=== PATIENT | male | born 1990 | race Caucasian/White ===

== ENCOUNTER 2018-04-27 15:55 | Emergency (ER) | payer OTHER, MEDICAID, SELFPAY ==
[2018-04-27 15:59] VITALS: BP 136/74; PULSE 89; RESP 20; TEMP 36.3; O2SAT 98; BMI 24.3
[2018-04-27 16:04] VITALS: PULSE 84; RESP 20; O2SAT 99
[2018-04-27] MEDS: ALBUTEROL 2.5 MG/3 ML NEB (ADULT) INH (16:04)
--- NOTE | 2018-04-27 17:06 | DI.RAD.S_ITS ---
PROCEDURE: XR CHEST 2V INDICATIONS: productive cough, sob TECHNIQUE: 2 views of the chest were acquired. COMPARISON: None. FINDINGS: Surgical changes and devices: None. Lungs and pleura: No pleural effusions or pneumothorax. Lungs are clear. Mediastinum: Mediastinal contours are normal. Heart size is normal. Bones and chest wall: No suspicious bony abnormalities. Soft tissues appear unremarkable. IMPRESSION: Normal for age. Source of current symptoms is not seen. Dictated by: Damon Busby M.D. on 04/27/2018 at 17:57 Approved by: Damon Busby M.D. on 04/27/2018 at 17:58
[2018-04-27] MEDS: predniSONE 20 MG TABLET 40 MG PO (17:25)
--- NOTE | 2018-04-27 17:32 | ED_ITS ---
HPI - SOB/Dyspnea <GOVIND Carreon - Last Filed: 04/27/18 19:53> General Chief Complaint: Shortness of Breath/Dyspnea Stated Complaint: DIFFICULTY BREATHING Time Seen by Provider: 04/27/18 16:59 Source: patient Mode of arrival: ambulatory Limitations: no limitations History of Present Illness Patient presents with chief complaint of shortness of breath and wheezing. States his been going on for 2 days. He thinks it is related to his allergies. He does have a history of asthma but states he has been taking medications for a long time. He endorses shortness of breath, wheezing and a productive cough. Denies any sore throat, denies ear pain, denies chest pain denies abdominal pain denies nausea vomiting or diarrhea. Related Data Previous Rx's Medication Instructions Recorded albuterol sulfate 2 puff INHALATION Q4-6H PRN #18 04/27/18 gram prednisone 40 mg PO DAILY #8 tab 04/27/18 Allergies Allergy/AdvReac Type Severity Reaction Status Date / Time amoxicillin Allergy Verified 04/27/18 15:59 Review of Systems <GOVIND Carreon - Last Filed: 04/27/18 19:53> Review of Systems GENERAL: Denies chills, fatigue, malaise, fever, sweats. HEENT: Denies sinus pain, ear pain, sore throat, difficulty swallowing, dizziness. RESPIRATORY: See HPI CARDIOVASCULAR: Denies chest pain, palpitations, orthopnea, edema, GASTROINTESTINAL: Denies nausea, vomiting, abdominal pain, diarrhea, constipation, melena. : Denies dysuria, frequency, incontinence, hematuria, urinary retention. MUSCULOSKELETAL: denies weakness, joint pain, or bony pain SKIN: Denies rash, skin lesions, or other NEUROLOGIC: Denies weakness, headache, numbness, change in speech, confusion, seizures, incoordination. PSYCHIATRIC: No concerning psychosocial issues. 12 point review of systems is negative except for those stated above Exam <GOVIND Carreon - Last Filed: 04/27/18 19:53> Narrative Exam Narrative: GENERAL: This is a well-nourished, well-developed patient, in no acute distress during on stretcher HEAD: Atraumatic. Normocephalic. No temporal or scalp tenderness. EYES: Pupils equal round and reactive. Extraocular motions intact. No scleral icterus. No injection or drainage. ENT: Nose without bleeding, purulent drainage or septal hematoma. Throat without erythema, tonsillar hypertrophy or exudate. Uvula midline. Airway patent. NECK: Trachea midline. No JVD or lymphadenopathy. Supple, nontender, no meningeal signs. CARDIOVASCULAR: Regular rate and rhythm without murmurs, gallops, or rubs. RESPIRATORY: Diffuse expiratory wheezes all mishra bilaterally. Breath sounds equal bilaterally. No rales or rhonchi. Wet sounding cough on exam. GASTROINTESTINAL: Abdomen soft, non-tender, nondistended. No hepato-splenomegaly , or palpable masses. No guarding. EXTREMITIES: No clubbing, cyanosis, or edema. No joint tenderness, effusion, or edema noted. BACK: Nontender without deformity or crepitance. No flank tenderness. NEURO: AOx3. SKIN: No rash or erythema. Initial Vital Signs Initial Vital Signs: Vital Signs Temperature 97.4 F L 04/27/18 15:59 Pulse Rate 89 04/27/18 15:59 Respiratory Rate 20 04/27/18 15:59 Blood Pressure 136/74 04/27/18 15:59 Pulse Oximetry 98 04/27/18 15:59 <Tony Grissom DO - Last Filed: 04/27/18 21:31> Initial Vital Signs Initial Vital Signs: Vital Signs Temperature 97.4 F L 04/27/18 15:59 Pulse Rate 89 04/27/18 15:59 Respiratory Rate 20 04/27/18 15:59 Blood Pressure 136/74 04/27/18 15:59 Pulse Oximetry 98 04/27/18 15:59 Course <EARLENE Carreon - Last Filed: 04/27/18 19:53> Course Narrative: I checked on the patient several times throughout his stay. Orders Ordered: ED Orders 04/27/18 17:06 XR chest 2V Stat 04/27/18 17:52 RT Consult Eval and Treat Now Discontinued Medications Albuterol (Ventolin) 2.5 mg INH NOW ONE Stop: 04/27/18 16:03 Last Admin: 04/27/18 16:04 Dose: 2.5 mg Albuterol/Ipratropium (Duoneb) 3 ml INH NOW ONE Stop: 04/27/18 18:04 Prednisone (Deltasone) 40 mg PO NOW ONE Stop: 04/27/18 17:07 Last Admin: 04/27/18 17:25 Dose: 40 mg Vital Signs - 8 hr 04/27/18 15:59 04/27/18 16:04 04/27/18 18:03 Temperature 97.4 F L Pulse Rate 89 84 86 Respiratory Rate 20 20 16 Blood Pressure 136/74 Pulse Oximetry 98 99 97 04/27/18 18:32 Temperature Pulse Rate 88 Respiratory Rate 20 Blood Pressure 114/66 Pulse Oximetry 98 <Tony Grissom DO - Last Filed: 04/27/18 21:31> Orders Ordered: ED Orders 04/27/18 17:06 XR chest 2V Stat 04/27/18 17:52 RT Consult Eval and Treat Now Discontinued Medications Albuterol (Ventolin) 2.5 mg INH NOW ONE Stop: 04/27/18 16:03 Last Admin: 04/27/18 16:04 Dose: 2.5 mg Albuterol/Ipratropium (Duoneb) 3 ml INH NOW ONE Stop: 04/27/18 18:04 Prednisone (Deltasone) 40 mg PO NOW ONE Stop: 04/27/18 17:07 Last Admin: 04/27/18 17:25 Dose: 40 mg Vital Signs - 8 hr 04/27/18 15:59 04/27/18 16:04 04/27/18 18:03 Temperature 97.4 F L Pulse Rate 89 84 86 Respiratory Rate 20 20 16 Blood Pressure 136/74 Pulse Oximetry 98 99 97 04/27/18 18:32 Temperature Pulse Rate 88 Respiratory Rate 20 Blood Pressure 114/66 Pulse Oximetry 98 MDM - SOB/Dyspnea <EARLENE Carreon - Last Filed: 04/27/18 19:53> Imaging Data Chest x-ray: Radiologist's impression: [address] [address] XRay Report Signed Patient: Clemente Quach EMR#: [id number] : 1990Acct:[id number] Age/Sex: 27 / MDate of Service: 04/27/18 Loc: ED Accession Number: [id number] Procedure: XR chest 2V Ordering Provider: Cindy Bhatia PROCEDURE: XR CHEST 2V INDICATIONS: productive cough, sob TECHNIQUE: 2 views of the chest were acquired. COMPARISON: None. FINDINGS: Surgical changes and devices: None. Lungs and pleura: No pleural effusions or pneumothorax. Lungs are clear. Mediastinum: Mediastinal contours are normal. Heart size is normal. Bones and chest wall: No suspicious bony abnormalities. Soft tissues appear unremarkable. IMPRESSION: Normal for age. Source of current symptoms is not seen. Dictated by: Damon Busby M.D. on 04/27/2018 at 17:57 Approved by: Damon Busby M.D. on 04/27/2018 at 17:58 [facility] Narrative Medical decision making narrative: Patient presents with chief complaint of wheezing. He was given a nebulizer treatment in triage. Given his productive cough, I elected to obtain a chest x-ray to evaluate for pneumonia which came back within normal limits. I passed a respiratory therapist to re-evaluate him for his wheezing after his x-ray and a dose of steroids. He was given a DuoNeb prior to discharge. Of note he does have a history of asthma, but states that he believes he ?grew out of it?. He responded well in the emergency department to be rule given. I elected to give him a inhaler upon discharge as well as a steroid burst given the level of his wheezing. I encouraged him to follow up with primary care provider come back to the emergency department for any acute needs or shortness of breath. He has no questions or concerns upon discharge. Discharge Plan Departure Patient Disposition: Home Clinical Impression: Bilateral wheezing Discharge Date/Time: 04/27/18 18:33 Interventions: ED Discharge Assessment Last Done: 04/27/18 18:32 Instructions: DI for Asthma -- Adult Activity Restrictions/Additional Instructions: Your x-ray came back okay today. I am giving you a prescription for steroids to take for the next 4 days. Please take 2 tablets tomorrow. I am also giving a prescription for albuterol inhaler to use every 4-6 hours as needed for wheezing. Please follow-up with primary care provider. Please come back to the emergency department for emergent needs or if you have any acute shortness of breath. Prescriptions: New prednisone 20 mg tablet 40 mg PO DAILY Qty: 8 RF: 0 albuterol sulfate 90 mcg/actuation HFA aerosol inhaler 2 puff INHALATION Q4-6H PRN (Reason: wheezing) Qty: 18 RF: 0 <Tony Grissom, DO - Last Filed: 04/27/18 21:31> Cosign ED Attending Cosignature Attestation: I was immediately available in the department for consultation. Documentation has been reviewed. I agree with assessment and plan. Sign Out Provider Sign Out Attestation: I was immediately available in the department for consultation. Documentation has been reviewed. I agree with assessment and plan.
[2018-04-27 18:03] VITALS: PULSE 86; RESP 16; O2SAT 97
[2018-04-27 18:32] VITALS: BP 114/66; PULSE 88; RESP 20; O2SAT 98
== END 2018-04-27 18:33 | disposition home or self-care (01) ==
PROVIDERS: Emergency Provider Nurse Practitioner Family
DX: R06.2 Wheezing (principal)
CPT/HCPCS: 71046; 94640; 99282; 99283; J7613

== ENCOUNTER 2018-12-04 19:07 | Emergency (ER) | payer OTHER, MEDICAID, SELFPAY ==
[2018-12-04 19:11] VITALS: BP 122/72; PULSE 68; RESP 14; TEMP 36.7; O2SAT 100
--- NOTE | 2018-12-04 19:16 | DI.RAD.S_ITS ---
PROCEDURE: XR WRIST RT MIN 3V INDICATIONS: fell on tuesday, skateboard injury TECHNIQUE: 4 views of the wrist were acquired. COMPARISON: None. FINDINGS: Bones: No fractures or dislocations. No suspicious bony lesions. Scaphoid view: No fracture. Soft tissues: No suspicious soft tissue calcifications. IMPRESSION: No visualized acute fracture or dislocation. However, if clinical concern and/or pain persist, short interval imaging followup in 7-10 days is recommended, as occult injury cannot be definitively excluded. Dictated by: Sultana Castro M.D. on 12/04/2018 at 19:46 Approved by: Sultana Castro M.D. on 12/04/2018 at 19:46
--- NOTE | 2018-12-04 19:59 | ED_ITS ---
HPI - Extremity Injury (Upper) <Regina Garcia PA-C - Last Filed: 12/04/18 21:41> General Chief Complaint: Extremity Injury, Upper Stated Complaint: RIGHT WRIST INJURY HARD TIME BREATHING Time Seen by Provider: 12/04/18 19:29 Source: patient Mode of arrival: ambulatory Limitations: no limitations History of Present Illness HPI narrative: This 28-year-old male comes to ED secondary to 1. Right wrist pain after fall off of his skateboard to extended wrist. He states that he has fallen on this wrist and hand in the past. He did this on Tuesday, but it is still painful. He feels like he can use his fingers and does not have pain in the hand, but it is painful to use the wrist. He denies any other acute injuries. 2. He has a history of springtime asthma and allergies. He started Abbie, but feels like he needs a refill on his inhaler as he can get tight chest and wheeze along with his other allergy symptoms when he is outdoors and exposed to pollen or animals. He is feeling fine now currently indoors, no recent illness or fever. He does not know the date of his last tetanus vaccine. He states he does have some chronic pain especially in both wrists and ankles but has not seen his PCP for this Related Data Previous Rx's Medication Instructions Recorded albuterol sulfate 2 puff INHALATION Q4-6H PRN #18 04/27/18 gram prednisone 40 mg PO DAILY #8 tab 04/27/18 albuterol sulfate 2 puff INHALATION Q4-6H PRN #8.5 12/04/18 gram Allergies Allergy/AdvReac Type Severity Reaction Status Date / Time amoxicillin Allergy Verified 12/04/18 19:16 Review of Systems <Regina Garcia PA-C - Last Filed: 12/04/18 21:41> Review of Systems ROS Unobtainable: All systems reviewed & are unremarkable except as noted in HPI and below PFSH <Regina Garcia PA-C - Last Filed: 12/04/18 21:41> Medical History (Updated 12/04/18 @ 20:28 by Regina Garcia PA-C) Asthma (Acute) Seasonal allergies (Acute) Social History Smoking Status: Current every day smoker Social History Smoking Status: Current every day smoker Exam <Regina Garcia PA-C - Last Filed: 12/04/18 21:41> Narrative Exam Narrative: GENERAL APPEARANCE: Patient sitting comfortably, in no distress. EYES: PERRL, EOMI. EARS: Normal auditory canals, TMS intact with normal light reflexes. ORAL CAVITY: Normal oropharynx. THROAT: PND noted, of gastelum no NECK/THYROID: Neck supple, full range of motion, no cervical lymphadenopathy. LUNGS: Clear to auscultation bilaterally, no cough on exam. HEART: RRR without murmur, nl S1, S2, no S3 or S4. MUSCULOSKELETAL: Right wrist there is no effusion. Tender across the posterior wrist and more on the lateral than medial side. Limited range of motion secondary to tenderness. No tenderness in the forearm, right hand or fingers. Full range of motion in the fingers, basketball referee strength 5/5 NEUROVASCULAR: Right hand fingers are warm and pink with brisk cap refill, sensation grossly intact DERMATOLOGIC: Scattered scabs and abrasions noted on the upper extremities, all dry, no erythema or drainage Initial Vital Signs Initial Vital Signs: Vital Signs Temperature 98.1 F 12/04/18 19:11 Pulse Rate 68 12/04/18 19:11 Respiratory Rate 14 12/04/18 19:11 Blood Pressure 122/72 12/04/18 19:11 Pulse Oximetry 100 12/04/18 19:11 <Gallo Cardoso MD - Last Filed: 12/05/18 05:04> Initial Vital Signs Initial Vital Signs: Vital Signs Temperature 98.1 F 12/04/18 19:11 Pulse Rate 68 12/04/18 19:11 Respiratory Rate 14 12/04/18 19:11 Blood Pressure 122/72 12/04/18 19:11 Pulse Oximetry 100 12/04/18 19:11 Course <Regina Garcia PA-C - Last Filed: 12/04/18 21:41> Orders Ordered: Discontinued Medications Tetanus/Diphtheria Toxoids (Td) 0.5 ml IM .ONCE ONE Stop: 12/04/18 19:55 Last Admin: 12/04/18 20:19 Dose: 0.5 ml Vital Signs - 8 hr 12/04/18 19:11 12/04/18 20:26 Temperature 98.1 F Pulse Rate 68 58 L Respiratory Rate 14 17 Blood Pressure 122/72 Blood Pressure [Right Arm] 118/65 Pulse Oximetry 100 100 <Gallo Cardoso MD - Last Filed: 12/05/18 05:04> Orders Ordered: Discontinued Medications Tetanus/Diphtheria Toxoids (Td) 0.5 ml IM .ONCE ONE Stop: 12/04/18 19:55 Last Admin: 12/04/18 20:19 Dose: 0.5 ml Vital Signs - 8 hr 12/04/18 19:11 12/04/18 20:26 Temperature 98.1 F Pulse Rate 68 58 L Respiratory Rate 14 17 Blood Pressure 122/72 Blood Pressure [Right Arm] 118/65 Pulse Oximetry 100 100 Discharge Plan Departure Patient Disposition: Home Clinical Impression: Sprain and strain of wrist Asthma Qualifiers: Asthma severity: mild Asthma persistence: intermittent Asthma complication type: with acute exacerbation Qualified Code(s): J45.21 - Mild intermittent asthma with (acute) exacerbation Discharge Date/Time: 12/04/18 20:33 Interventions: ED Discharge Assessment Last Done: 12/04/18 20:33 Instructions: DI for Wrist Sprain Activity Restrictions/Additional Instructions: Please return if you have any acutely worsening symptoms. Please wear your wrist immobilizer splint to help protect your wrist. Continue your [id number] Aleve, 2 tablets every 12 hours, which is the equivalent of a prescription dose. Please continue your antihistamine that you have been taking and fill the prescription for albuterol on your way home. Use it as needed with your spacer. Please call the insurance Resource line here at [facility], tomorrow to get help with a referral to a local primary care provider, and see the PCP you have now in the next week if you are not able to see someone locally. You may need repeat x-rays as we talked about if you are not doing better, and you should also discuss your chronic joint pains. Prescriptions: New albuterol sulfate 90 mcg/actuation HFA aerosol inhaler 2 puff INHALATION Q4-6H PRN (Reason: shortness of breath or wheezing) Qty: 8.5 RF: 0 No Action prednisone 20 mg tablet 40 mg PO DAILY Qty: 8 RF: 0 albuterol sulfate 90 mcg/actuation HFA aerosol inhaler 2 puff INHALATION Q4-6H PRN (Reason: wheezing) Qty: 18 RF: 0 Referrals: Nba Matos [Other] <Gallo Cardoso MD - Last Filed: 12/05/18 05:04> Cosign ED Attending Cosignature Attestation: I was present in the ER at the time this patient's care. I was available for consultation or to see the patient directly if requested. I agree with the patient's evaluation, assessment and treatment plan.
[2018-12-04] MEDS: TETANUS DIPHTHERIA TOXOIDS 0.5 ML VIAL IM (20:19)
[2018-12-04 20:26] VITALS: BP 118/65; PULSE 58; RESP 17; O2SAT 100
== END 2018-12-04 20:33 | disposition home or self-care (01) ==
PROVIDERS: Emergency Provider Internal Medicine
DX: S63.501A Unspecified sprain of right wrist, initial encounter (principal); J45.21 Mild intermittent asthma with (acute) exacerbation; V00.131A Fall from skateboard, initial encounter; Z23 Encounter for immunization
CPT/HCPCS: 73110; 90471; 90714; 99282; 99283

== ENCOUNTER 2019-10-13 20:19 | Emergency (ER) | payer OTHER, MEDICAID, SELFPAY ==
[2019-10-13 20:30] VITALS: BP 126/65; PULSE 71; RESP 15; TEMP 36.4; O2SAT 99; BMI 24.5
[2019-10-13 20:35] VITALS: PULSE 66; RESP 16; O2SAT 100
--- NOTE | 2019-10-13 20:54 | ED_ITS ---
HPI - SOB/Dyspnea <CHAYO Pearce - Last Filed: 10/13/19 21:02> General Chief Complaint: Shortness of Breath/Dyspnea Stated Complaint: trouble breathing Time Seen by Provider: 10/13/19 20:39 Source: patient Mode of arrival: Family Vehicle Limitations: no limitations History of Present Illness HPI Narrative: This is a 29 year male, smoker, who presents to ED with asthma exacerbation around same time of the year. Patient states he has allergies to pollen, grass, dust and he tends to have asthma exacerbation from these. Patient reports he ran out of albuterol inhaler and his in process of setting up a PCP. Patient reports mild short of breath, mild cough, congestion, and mild chest tightness. Patient denies fever, recent foreign travel, ill contact. Patient reports no other chronic medical problems besides asthma. Related Data Previous Rx's Medication Instructions Recorded albuterol sulfate 2 puff INHALATION Q4-6H PRN #18 04/27/18 gram prednisone 40 mg PO DAILY #8 tab 04/27/18 albuterol sulfate 2 puff INHALATION Q4-6H PRN #8.5 12/04/18 gram Allergies Allergy/AdvReac Type Severity Reaction Status Date / Time amoxicillin Allergy Verified 12/04/18 19:16 Review of Systems <CHAYO Pearce - Last Filed: 10/13/19 21:02> Review of Systems Narrative: General: Denies fever, chills, fatigue, malaise, sweats. HEENT: Denies sinus pain, ear pain, sore throat, difficulty swallowing, dizziness. Respiratory: See HPI Cardiovascular: Denies chest pain, palpitations, orthopnea, edema. Gastrointestinal: Denies nausea, vomiting, abdominal pain, diarrhea, constipation, melena. : Denies dysuria, frequency, incontinence, hematuria, urinary retention. Musculoskeletal: Denies weakness, joint pain or bony pain. Skin: Denies rash, skin lesions, or other. Neurologic: Denies weakness, headache, numbness, change in speech, confusion, seizures, incoordination. Psychiatric: No concerning psychosocial issues. 12-point review of systems is negative except for those stated above. Patient History <CHAYO Pearce - Last Filed: 10/13/19 21:02> Medical History Asthma (Acute) Seasonal allergies (Acute) Surgical History S/P tendon repair (Acute) Social History Smoking Status: Current every day smoker Smoking Status: Current every day smoker alcohol intake frequency: 0-2 drinks per day Substance Use Type: does not use Exam <CHAYO Pearce - Last Filed: 10/13/19 21:02> Narrative Exam Narrative: GEN: Alert, oriented x 3, well appearing and nourished, and in no acute distress. Head: Normal cephalic, atraumatic. No scalp or temporal tenderness, palpable mass or rash. EYES: Pupils are equal, round, and reactive to light and accommodation. Extraocular muscles are intact bilaterally. There is no subconjunctival hemorrhage, exudate and sclera non-icteric. ENT: Bilateral auditory canals and tympanic membranes clear. Hearing grossly intact. Nose without bleeding, purulent discharge or deviation. Facial sinuses nontender to palpate. Mucous membrane moist, no mucosal lesion. Throat without erythema, tonsillar hypertrophy or exudate. Uvula in midline, airway patent. Neck: Trachea in midline. No JVD, non-tender without lymphadenopathy. No masses or thyroid megaly. Supple, non-tender and no meningeal signs. CARDIAC: Normal regular rate and rhythm without murmurs, gallops, or rubs. No chest wall tenderness. No peripheral edema, cyanosis or pallor. Capillary refill is less than 2 seconds. RESPIRATORY: Lungs are clear to auscultate bilaterally. No cough, wheezes, rales, or rhonchi. No stridor, respiratory distress, increase work of breathing, or accessary muscle used. ABD: Abdomen soft, nontender and non-distended. No guarding or rebound tenderness to palpate. Bowel sounds are normal in all 4 quadrants. There is no palpable masses or organomegaly. EXT: Full painless ROM of all extremities with no loss of sensation, strength, effusion or edema. SKIN: Warm, dry, normal color for patient. No erythema, lesions or rash over visible areas. BACK: Nontender without deformity or crepitance. No flank tenderness. NEUROLOGICAL: Alert and oriented to place, time and person. Sensation and motor function intact bilaterally. No facial droops, dysphasia. PSYCHIATRIC: Good judgement and reason, without hallucinations, abnormal affect or abnormal behaviors during the examination. Initial Vital Signs Initial Vital Signs: Vital Signs Temperature 97.6 F 10/13/19 20:30 Pulse Rate 71 10/13/19 20:30 Respiratory Rate 15 10/13/19 20:30 Blood Pressure 126/65 10/13/19 20:30 Pulse Oximetry 99 10/13/19 20:30 <Robin Garvin MD - Last Filed: 10/14/19 04:05> Initial Vital Signs Initial Vital Signs: Vital Signs Temperature 97.6 F 10/13/19 20:30 Pulse Rate 71 10/13/19 20:30 Respiratory Rate 15 10/13/19 20:30 Blood Pressure 126/65 10/13/19 20:30 Pulse Oximetry 99 10/13/19 20:30 Scores <CHAYO Pearce - Last Filed: 10/13/19 21:02> GCS Fabián coma scale eye opening: Spontaneous Fabián coma scale verbal response: Orientated Fabián coma scale motor response: Obey commands Fabián coma scale total score: 15 Course <CHAYO Pearce - Last Filed: 10/13/19 21:02> Orders Ordered: Discontinued Medications Albuterol (Ventolin Hfa Prepack) 1 box MISC SEEINSTR ONE Stop: 10/13/19 20:52 Last Admin: 10/13/19 21:05 Dose: 1 box Documented by: HARRISON Vital Signs Vital signs: Vital Signs - 8 hr 10/13/19 20:30 10/13/19 20:35 10/13/19 21:09 Temperature 97.6 F Pulse Rate 71 66 Respiratory Rate 15 16 16 Blood Pressure 126/65 Pulse Oximetry 99 100 98 10/13/19 21:20 Temperature Pulse Rate 59 L Respiratory Rate 16 Blood Pressure 113/58 L Pulse Oximetry 100 <Robin Garvin MD - Last Filed: 10/14/19 04:05> Orders Ordered: Discontinued Medications Albuterol (Ventolin Hfa Prepack) 1 box MISC SEEINSTR ONE Stop: 10/13/19 20:52 Last Admin: 10/13/19 21:05 Dose: 1 box Documented by: HARRISON Vital Signs Vital signs: Vital Signs - 8 hr 10/13/19 20:30 10/13/19 20:35 10/13/19 21:09 Temperature 97.6 F Pulse Rate 71 66 Respiratory Rate 15 16 16 Blood Pressure 126/65 Pulse Oximetry 99 100 98 10/13/19 21:20 Temperature Pulse Rate 59 L Respiratory Rate 16 Blood Pressure 113/58 L Pulse Oximetry 100 MDM - SOB/Dyspnea <Aneudy RubalcavaJigarElioCHAYO - Last Filed: 10/13/19 21:02> Differential Diagnosis Differential diagnosis: Likely asthma with exacerbation and other (Seasonal allergies, pneumonia) Medical Records Attestation: I reviewed the patient's medical records. MDM Narrative Medical decision making narrative: This is a 29-year-old male who presents to ED with chief complain of asthma exacerbation likely from seasonal allergies around the same time of the year. Patient reports he is out of albuterol inhaler which he uses and in process of setting up a PCP but this is not going to be done till in the beginning of next month. Lung sounds are clear to auscultate in all lobes. There is no increased work of breathing. Patient does not have frequent coughing. Patient provided with albuterol MDI prepack and contact information for [facility] to set up a PCP. Return precautions were discussed with the patient and patient verbalized understanding and in agreement with the treatment plan. Discharge Plan Departure Patient Disposition: Home Clinical Impression: Asthma with exacerbation Qualifiers: Asthma severity: mild Asthma persistence: unspecified Qualified Code(s): J45.901 - Unspecified asthma with (acute) exacerbation Discharge Date/Time: 10/13/19 21:20 Instructions: DI for Asthma -- Adult Activity Restrictions/Additional Instructions: You have been diagnosed with [asthma exacerbation likely due to seasonal allergy.]. What to do: *Take your medications as directed. You have been provided with albuterol inhaler prepack in ED. you can use 2 puffs every 4-6 hours as needed for short of breath, cough, chest tightness. You can try [id number] allergy medication as well such as Zyrtec, Abbie, Claritin. *Follow up with your primary care provider in 2-3 days, call for an appointment. Let them know you were seen in the ED and that we asked you to be seen in follow up. Please contact [facility] phone number to set up a PCP. *Return to ED if you have any new, worsening, or concerning symptoms, such as [chest pain, breathing difficulty, fever, or any acute concerns]. Prescriptions: No Action prednisone 20 mg tablet 40 mg PO DAILY Qty: 8 RF: 0 albuterol sulfate 90 mcg/actuation HFA aerosol inhaler 2 puff INHALATION Q4-6H PRN (Reason: wheezing) Qty: 18 RF: 0 albuterol sulfate 90 mcg/actuation HFA aerosol inhaler 2 puff INHALATION Q4-6H PRN (Reason: shortness of breath or wheezing) Qty: 8.5 RF: [address]errals: [facility] [Outside] ED Sign-out <CHAYO Pearce - Last Filed: 10/13/19 21:02> Cosign ED Attending Endyature Attestation: I was immediately available in the department for consultation. This documentation has been reviewed and I agree with assessment and plan. Supervised by CHAYO Pearce
[2019-10-13] MEDS: ALBUTEROL HFA PREPACK 1 BOX MISC (21:05)
[2019-10-13 21:09] VITALS: RESP 16; O2SAT 98
[2019-10-13 21:20] VITALS: BP 113/58; PULSE 59; RESP 16; O2SAT 100; O2SAT 99
== END 2019-10-13 21:20 | disposition home or self-care (01) ==
PROVIDERS: Emergency Provider Nurse Practitioner Family
DX: J45.901 Unspecified asthma with (acute) exacerbation (principal); F17.200 Nicotine dependence, unspecified, uncomplicated
CPT/HCPCS: 94640; 99281; 99282

== ENCOUNTER 2019-11-28 12:07 | Emergency (ER) | payer OTHER, MEDICAID, SELFPAY ==
[2019-11-28 12:10] VITALS: BP 162/83; PULSE 100; RESP 14; TEMP 36.9; O2SAT 96; BMI 24.3
--- NOTE | 2019-11-28 12:23 | ED_ITS ---
HPI - Wound/Laceration <CHAYO Tompkins - Last Filed: 11/28/19 13:07> General Chief Complaint: Wound/Laceration Stated Complaint: LT PINKY SLICED Time Seen by Provider: 11/28/19 12:10 Source: patient Mode of arrival: Ambulatory Limitations: no limitations History of Present Illness HPI narrative: This is a 29 year male, smoker, who presents to ED with chief complain of laceration on his non dominant hand, left 5th finger from a garden shear 1 hour before coming into ED. patient reports his tetanus immunization is updated recently. Right dominant hand. Reports he had could direct pressure and immediately applied occlusive dressing prior coming into ED. Related Data Previous Rx's Medication Instructions Recorded albuterol sulfate 2 puff INHALATION Q4-6H PRN #18 04/27/18 gram prednisone 40 mg PO DAILY #8 tab 04/27/18 albuterol sulfate 2 puff INHALATION Q4-6H PRN #8.5 12/04/18 gram albuterol sulfate 2 inhalation INHALATION Q4-6H PRN 11/28/19 #1 each Allergies Allergy/AdvReac Type Severity Reaction Status Date / Time amoxicillin Allergy Verified 11/28/19 12:13 Review of Systems <CHAYO Tompkins - Last Filed: 11/28/19 13:07> Review of Systems Narrative: General: Denies fever, chills, fatigue, malaise, sweats. HEENT: Denies sinus pain, ear pain, sore throat, difficulty swallowing, dizziness. Respiratory: Denies dyspnea, cough, wheezing, hemoptysis, sputum. Cardiovascular: Denies chest pain, palpitations, orthopnea, edema. Gastrointestinal: Denies nausea, vomiting, abdominal pain, diarrhea, constipation, melena. : Denies dysuria, frequency, incontinence, hematuria, urinary retention. Musculoskeletal: Denies weakness, joint pain or bony pain. Skin: See HPI Patient History <CHAYO Tompkins - Last Filed: 11/28/19 13:07> Medical History Asthma (Acute) Seasonal allergies (Acute) Surgical History S/P tendon repair (Acute) Social History Smoking Status: Current every day smoker Smoking Status: Current every day smoker alcohol intake frequency: holidays/special occasions only Substance Use Type: does not use Exam <CHAYO Tompkins - Last Filed: 11/28/19 13:07> Narrative Exam Narrative: General appearance: well developed, well nourished, in no acute distress. Head: normocephalic, atraumatic, no scalp lesions, non-tender. ENT: Hearing grossly intact. Nose without bleeding, purulent discharge. Facial sinuses nontender to palpate. Mucous membrane moist, no mucosal lesion. Neck/Thyroid: neck supple, full range of motion, no visible masses or meningeal signs. No JVD, non-tender without lymphadenopathy. Skin: Flap shaped small laceration on the tip left 5th finger distal phalanx. no suspicious rashes, lesions over other visible areas. Warm and dry and appropriate color for ethnicity. Heart: no clubbing, no cyanosis, no edema. Lungs: Breathing even and unlabored. No stridor. No accessory muscles used. Able to speak in full sentences. Chest: normal shape and expansion. Abdomen: non-obese, non-distended. Neurologic: alert and oriented. 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 Psych: good eye contact, normal affect. Initial Vital Signs Initial Vital Signs: Vital Signs Temperature 98.4 F 11/28/19 12:10 Pulse Rate 100 H 11/28/19 12:10 Respiratory Rate 14 11/28/19 12:10 Blood Pressure 162/83 H 11/28/19 12:10 Pulse Oximetry 96 11/28/19 12:10 <Shell An MD - Last Filed: 11/28/19 18:36> Initial Vital Signs Initial Vital Signs: Vital Signs Temperature 98.4 F 11/28/19 12:10 Pulse Rate 100 H 11/28/19 12:10 Respiratory Rate 14 11/28/19 12:10 Blood Pressure 162/83 H 11/28/19 12:10 Pulse Oximetry 96 11/28/19 12:10 Procedures <CHAYO Tompkins - Last Filed: 11/28/19 13:07> Laceration Repair Laceration 1: Site: hand (5th finger tip) Side (If applicable): left Size (cm): 1 Description: flap Pre-repair: wound explored and irrigated extensively Skin layer closed with: steri-strips Scores <CHAYO Tompkins - Last Filed: 11/28/19 13:07> GCS [place] coma scale eye opening: Spontaneous Fabián coma scale verbal response: Orientated [place] coma scale motor response: Obey commands [place] coma scale total score: 15 Course <CHAYO Tompkins - Last Filed: 11/28/19 13:07> Vital Signs Vital signs: Vital Signs - 8 hr 11/28/19 12:10 Temperature 98.4 F Pulse Rate 100 H Respiratory Rate 14 Blood Pressure 162/83 H Pulse Oximetry 96 <Shell An MD - Last Filed: 11/28/19 18:36> Vital Signs Vital signs: Vital Signs - 8 hr 11/28/19 12:10 Temperature 98.4 F Pulse Rate 100 H Respiratory Rate 14 Blood Pressure 162/83 H Pulse Oximetry 96 MDM - Wound/Laceration <CHAYO Tompkins - Last Filed: 11/28/19 13:07> Differential Diagnosis Differential diagnosis: Likely laceration Medical Records Attestation: I reviewed the patient's medical records. [facility] Narrative Medical decision making narrative: This is a 29 year male who presents to ED with left 5th distal finger tip laceration, approximately 1 cm from a garden shear. Patient reports his tetanus immunization was recently updated. Patient is able to move affected finger with intact sensation. Wound was soaked in Hibiclens solution for 15 minutes and irrigated well with copious pressure. No foreign body appreciated. Wound has been repaired with Steri-Strips and protected on finger splint to protect wound and prevent 3 rupturing. Discussed home wound care and monitor for infection, and return precautions were discussed with patient and patient verbalized understanding and agreement with treatment plan. Patient also requested asthma medication albuterol since he has not set up PCP as advised during last visit which has been transmitted to [facility] in [place]. Discharge Plan Departure Patient Disposition: Home Clinical Impression: History of asthma Finger laceration Qualifiers: Encounter type: initial encounter Finger: little finger Damage to nail status: without damage Foreign body presence: without foreign body Laterality: left Qualified Code(s): S61.217A - Laceration without foreign body of left little finger without damage to nail, initial encounter Discharge Date/Time: 11/28/19 13:00 Instructions: DI for Laceration Repair, DI for Laceration Repair Steri-Strips Activity Restrictions/Additional Instructions: You have been diagnosed with [left finger tip laceration and history of asthma requiring medication refill]. What to do: *Take your medications as directed. You can take [id number] Tylenol and or Motrin as needed for discomfort. You can apply over the antibiotic ointment very small amount on laceration site as needed. Albuterol inhaler has been transmitted to [facility] in [place]. *Follow up with your primary care provider in 2-3 days, call for an appointment. Let them know you were seen in the ED and that we asked you to be seen in follow up. *Return to ED if you have any new, worsening, or concerning symptoms, such as [chest pain, breathing difficulty, unable to tolerate fluids, fever, signs of infection on your laceration such as increasing redness, swelling, purulent discharge, warmth, fever, or pain]. Prescriptions: New albuterol sulfate 90 mcg/actuation aerosol powdr breath activated 2 inhalation INHALATION Q4-6H PRN (Reason: shortness of breath or wheezing) Qty: 1 RF: 0 No Action prednisone 20 mg tablet 40 mg PO DAILY Qty: 8 RF: 0 albuterol sulfate 90 mcg/actuation HFA aerosol inhaler 2 puff INHALATION Q4-6H PRN (Reason: wheezing) Qty: 18 RF: 0 albuterol sulfate 90 mcg/actuation HFA aerosol inhaler 2 puff INHALATION Q4-6H PRN (Reason: shortness of breath or wheezing) Qty: 8.5 RF: 0 Referrals: [facility] [Outside] <Shell An MD - Last Filed: 11/28/19 18:36> Cosign ED Attending Cosignature Attestation: I was immediately available in the department for consultation throughout this patient's visit. I agree with documentation as above. Shell An MD
--- NOTE | 2019-11-28 12:40 | PC.NURSE ---
Patient in room with 4x4 sterile gauze over the finger and holding it together. Wound is hemostatic. Possible debris in wound. Provider notified.
== END 2019-11-28 13:00 | disposition home or self-care (01) ==
PROVIDERS: Emergency Provider Nurse Practitioner Family
DX: S61.217A Laceration without foreign body of left little finger without damage to nail, initial encounter (principal); W26.9XXA Contact with unspecified sharp object(s), initial encounter; J45.909 Unspecified asthma, uncomplicated
CPT/HCPCS: 99281

== ENCOUNTER 2020-01-02 18:43 | Emergency (ER) | payer OTHER, MEDICAID, SELFPAY ==
[2020-01-02 18:49] VITALS: BP 139/63; PULSE 81; RESP 20; TEMP 36.9; O2SAT 99
--- NOTE | 2020-01-02 19:11 | ED_ITS ---
HPI - Recheck/Abnormal Lab/Rx <CHAYO Tompkins - Last Filed: 01/02/20 19:20> General Chief Complaint: Recheck/Abnormal Lab/Rx Stated Complaint: Needs New Inhaler Time Seen by Provider: 01/02/20 18:58 Source: patient Mode of arrival: Ambulatory Limitations: no limitations History of Present Illness HPI narrative: This is a 29-year-old male, smoker, presents to ED with request of albuterol inhaler refill. 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 Patient states his current albuterol inhaler cap is broken and he was able to find old inhaler which had half a dose of what he needed which relieved his symptoms. Patient denies fever, chills, nausea or vomiting. Patient denies short of breath at this time. Patient denies cough. Patient has been taking daily Abbie [id number] and he thinks this has been helping his symptoms. He recently found PCP-Jael at [facility]. Related Data Previous Rx's Medication Instructions Recorded albuterol sulfate 2 inhalation INHALATION Q4-6H PRN 11/28/19 #1 each albuterol sulfate 2 inhalation INHALATION Q4-6H PRN 01/02/20 #1 each Allergies Allergy/AdvReac Type Severity Reaction Status Date / Time amoxicillin Allergy Verified 11/28/19 12:13 Review of Systems <CHAYO Tompkins - Last Filed: 01/02/20 19:20> Review of Systems Narrative: General: Denies fever, chills, fatigue, malaise, sweats. HEENT: Denies sinus pain, ear pain, sore throat, difficulty swallowing, dizziness. Respiratory: See HPI Cardiovascular: Denies chest pain, palpitations, orthopnea, edema. Gastrointestinal: Denies nausea, vomiting, abdominal pain, diarrhea, constipation, melena. : Denies dysuria, frequency, incontinence, hematuria, urinary retention. Musculoskeletal: Denies weakness, joint pain or bony pain. Skin: Denies rash, skin lesions, or other. Neurologic: Denies weakness, headache, numbness, change in speech, confusion, seizures, incoordination. Psychiatric: No concerning psychosocial issues. 12-point review of systems is negative except for those stated above. Patient History <CHAYO Tompkins - Last Filed: 01/02/20 19:20> Medical History Asthma (Acute) Seasonal allergies (Acute) Surgical History S/P tendon repair (Acute) Social History Smoking Status: Current every day smoker Smoking Status: Current every day smoker alcohol intake frequency: holidays/special occasions only Substance Use Type: does not use Exam <CHAYO Tompkins - Last Filed: 01/02/20 19:20> Narrative Exam Narrative: General appearance: well developed, well nourished, in no acute distress. Head: normocephalic, atraumatic, no scalp lesions, non-tender. ENT: Hearing grossly intact. Airway patent. Neck/Thyroid: neck supple, full range of motion, no visible masses or meningeal signs. No JVD, non-tender without lymphadenopathy. Skin: no suspicious rashes, lesions over visible areas. Warm and dry and appropriate color for ethnicity. Heart: no clubbing, no cyanosis, no edema. S1 and S2 normal. RRR w/o murmurs, clicks, or bruits. Lungs: Breathing even and unlabored. No stridor or wheezing. Lungs clear to auscultate in all lobes. No accessory muscles used. Able to speak in full sentences. Chest: normal shape and expansion. Abdomen: non-obese, non-distended. Neurologic: alert and oriented. 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 Psych: good eye contact, normal affect. Initial Vital Signs Initial Vital Signs: Vital Signs Temperature 98.5 F 01/02/20 18:49 Pulse Rate 81 01/02/20 18:49 Respiratory Rate 20 01/02/20 18:49 Blood Pressure 139/63 01/02/20 18:49 Pulse Oximetry 99 01/02/20 18:49 <Shell An MD - Last Filed: 01/03/20 02:42> Initial Vital Signs Initial Vital Signs: Vital Signs Temperature 98.5 F 01/02/20 18:49 Pulse Rate 81 01/02/20 18:49 Respiratory Rate 20 01/02/20 18:49 Blood Pressure 139/63 01/02/20 18:49 Pulse Oximetry 99 01/02/20 18:49 Scores <CHAYO Tompkins - Last Filed: 01/02/20 19:20> GCS Fabián coma scale eye opening: Spontaneous [place] coma scale verbal response: Orientated [place] coma scale motor response: Obey commands [place] coma scale total score: 15 Course <CHAYO Tompkins - Last Filed: 01/02/20 19:20> Vital Signs Vital signs: Vital Signs - 8 hr 01/02/20 18:49 Temperature 98.5 F Pulse Rate 81 Respiratory Rate 20 Blood Pressure 139/63 Pulse Oximetry 99 <Shell An MD - Last Filed: 01/03/20 02:42> Vital Signs Vital signs: Vital Signs - 8 hr 01/02/20 18:49 Temperature 98.5 F Pulse Rate 81 Respiratory Rate 20 Blood Pressure 139/63 Pulse Oximetry 99 [facility] - Recheck/Abnormal Lab/Rx <CHAYO Tompkins - Last Filed: 01/02/20 19:20> Differential Diagnosis Differential diagnosis: Likely encounter for medication refill Medical Records Attestation: I reviewed the patient's medical records. [facility] Narrative Medical decision making narrative: Lungs clears to auscultate in all lobes. Patient asymptomatic at this time. Patient here for refill of albuterol and this has been transmitted to [facility]. Patient advised continue to take daily Abbie for seasonal allergies. Return precautions discussed with the patient and patient verbalized understanding and agreement with the treatment plan. Discharge Plan Departure Patient Disposition: Home Clinical Impression: Encounter for medication refill Discharge Date/Time: 01/02/20 19:38 Instructions: DI for Reactive Airway Disease-Adult Activity Restrictions/Additional Instructions: You have been diagnosed with [reactive airway disease/asthma likely due to seasonal allergy.]. What to do: *Take your medications as directed. You can take albuterol as needed more short of breath or wheezing. The medication has been transmitted to [facility] in [place]. *Follow up with your primary care provider in 2-3 days, call for an appointment. Let them know you were seen in the ED and that we asked you to be seen in follow up. *Return to ED if you have any new, worsening, or concerning symptoms, such as [chest pain, breathing difficulty, unable to tolerate fluids, fever, or any acute concerns]. Prescriptions: New albuterol sulfate 90 mcg/actuation aerosol powdr breath activated 2 inhalation INHALATION Q4-6H PRN (Reason: shortness of breath or wheezing) Qty: 1 RF: 0 No Action albuterol sulfate 90 mcg/actuation aerosol powdr breath activated 2 inhalation INHALATION Q4-6H PRN (Reason: shortness of breath or wheezing) Qty: 1 RF: 0 Referrals: Anneliese Elder ARNP [Primary Care Provider] - <Shell An MD - Last Filed: 01/03/20 02:42> Cosign ED Attending Cosignature Attestation: I was immediately available in the department for consultation throughout this patient's visit. I agree with documentation as above. Shell An MD
== END 2020-01-02 19:38 | disposition home or self-care (01) ==
PROVIDERS: Emergency Provider Nurse Practitioner Family; PCP Nurse Practitioner
DX: Z76.0 Encounter for issue of repeat prescription (principal)
CPT/HCPCS: 99281